=== PATIENT | male | born 1960 | race Caucasian/White ===

== ENCOUNTER 2023-04-26 09:21 | Emergency (ER) | payer SELFPAY ==
[2023-04-26 09:26] VITALS: BP 194/98; PULSE 83; RESP 16; TEMP 36.6; O2SAT 97; BMI 32.3
--- NOTE | 2023-04-26 09:54 | CRLHL7_ITS ---
For Patients: As a result of the Cures Act, medical imaging exams and procedure reports are released immediately into your electronic medical record. You may view this report before your referring provider. If you have questions, please contact your health care provider. INDICATION: Left facial swelling. TECHNIQUE: CT maxillofacial without contrast. COMPARISON: None. FINDINGS: Facial bones: Smita Bernal on knee. Would you by chance the available to in about 10 minutes? Orbits and globes: Unremarkable. Globes are intact. No sign of intraorbital hemorrhage or emphysema. Sinuses: Dense mucosal thickening in the left maxillary sinus. 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 Generalized superficial edema/inflammation in the left facial soft tissues. No deep tissue inflammation and no abscess. IMPRESSION: Left maxillary periodontal disease is likely resulting in inflammatory changes in the left maxillary sinus and acute superficial left facial edema/inflammation. No deep tissue inflammation and no drainable abscess. Please note that all CT scans at this facility use dose modulation, iterative reconstruction, and/or weight-based dosing when appropriate to reduce radiation dose to as low as reasonably achievable. Dictated by Humberto Joel MD @ 04/26/2023 10:56:03 AM (Electronically Signed)
--- NOTE | 2023-04-26 09:57 | ED.GENADULT ---
HPI - General Adult General Chief complaint: Unspecified Complaint, Adult Stated complaint: left eye drooping Time Seen by Provider: 04/26/23 09:47 History of Present Illness HPI narrative: Patient is a 63 year white male with history of hypertension and anxiety depression who presents with left facial swelling for a couple of days. He has noted that he has a warm red swollen face on the left in his left cheek and just below his eye. Does not appear to involve his eye. He has had no skin rashes or other bites or injury to the face. He does report that it feels a little hot to him, he has felt a little bit weak but he does not really feel chills or fevers and no rigors. He has not had similar infection in the past. He reports he is not diabetic. He is allergic only to penicillin. He has had no chest pain breathing problem fevers or chills. Related Data Home Medications Medication Instructions Recorded Confirmed metoprolol tartrate 100 mg tablet 100 mg PO BID 04/26/23 04/26/23 venlafaxine 150 mg 150 mg PO DAILY 04/26/23 04/26/23 capsule,extended release 24 hr Allergies Allergy/AdvReac Type Severity Reaction Status Date / Time Penicillins Allergy Verified 04/26/23 08:55 Review of Systems Status of ROS: Reports: 6 or more systems reviewed and unremarkable except as noted in History and below [facility] Social History Smoking Status: Never smoker How often do you have a drink containing alcohol: never How often do you have six or more drinks on one occasion: Never AUDIT-C Alcohol total score: 0 Non-prescribed substance use: denies use Exam Narrative: Exam Narrative: Objective: Vital signs show slightly elevated blood pressure afebrile HEENT shows a warm swollen left cheek and upper upper maxillary area. He has no mouth findings. He has got normal creases of his forehead he is able to smile and use his facial muscles, but it is a little less full of a smile on the left due to the swelling in his cheek. There is clearly moving there however he does not have a facial droop. His eye lid has been swollen as well. He has no lid lag, pupils react to light Pulses regular Neurologic is grossly nonfocal upper lower extremities. Const: Vital Signs, click to edit/add: Vital Signs - 24 hr 04/26/23 09:26 04/26/23 10:20 04/26/23 11:10 Temperature 97.8 F Pulse Rate [Left P ulse Oximeter] 83 79 73 Respiratory Rate 16 Blood Pressure [Ri ght Upper Arm] 194/98 H 201/108 H 193/95 H Pulse Oximetry 97 96 98 Oxygen Delivery Me thod Room Air Room Air Room Air 04/26/23 12:00 04/26/23 13:09 Temperature Pulse Rate [Left P ulse Oximeter] 66 Respiratory Rate Blood Pressure [Ri ght Upper Arm] 176/103 H 160/75 H Pulse Oximetry 99 Oxygen Delivery Me thod Room Air Course Vital Signs Vital signs: Initial Vital Signs Temperature 97.8 F 04/26/23 09:26 Temperature Source Temporal Artery Scan 04/26/23 09:26 Pulse Rate 83 04/26/23 09:26 Respiratory Rate 16 04/26/23 09:26 Blood Pressure 194/98 H 04/26/23 09:26 Blood Pressure Mean 130 H 04/26/23 09:26 Blood Pressure Position Sitting 04/26/23 09:26 Pulse Oximetry 97 04/26/23 09:26 Oxygen Delivery Method Room Air 04/26/23 09:26 Vital Signs Temperature 97.8 F 04/26/23 09:26 Pulse Rate 83 04/26/23 09:26 Respiratory Rate 16 04/26/23 09:26 Blood Pressure 194/98 H 04/26/23 09:26 Pulse Oximetry 97 04/26/23 09:26 Oxygen Delivery Method Room Air 04/26/23 09:26 Temperature 97.8 F 04/26/23 09:26 Pulse Rate 66 04/26/23 13:09 Respiratory Rate 16 04/26/23 09:26 Blood Pressure 160/75 H 04/26/23 13:09 Pulse Oximetry 99 04/26/23 13:09 Oxygen Delivery Method Room Air 04/26/23 13:09 Medical Decision Making MDM Narrative Medical decision making narrative: [age] year white male with history of hypertension with 3 day history of left facial swelling that is worsening. Warmth to the left maxillary area. Rule out abscess, rule out cellulitis. Patient likely has a facial cellulitis. Does not appear to involve his eyeball or periorbital area. I think would be twonsend to get a facial CT scan to rule out abscess in his cheek, would also give him IV vancomycin check labs including CRP and CBC. If he has no abscess and if he tolerates, he could return q.12 hours for vancomycin. He lives in [place]. Please see addendum dictation Addendum: Labs look reassuring, patient was given his blood pressure medicine that he missed this morning. He has left maxillary periodontal disease has inflammatory changes left maxillary sinus and acute superficial left facial edema inflammation no deep tissue inflammation no drainable abscess. At this point he appears clinically stable will give him a dose of ertapenem an additional dose of vancomycin today at night and tomorrow morning and then re-evaluation in the ER. Either for additional or to [place] or up patient antibiotics. Also recommended dental appointment for the patient since seems like there has periodontal disease. He does not have anything grossly draining or reddened in his mouth at this time. Would recommend a dental appointment tomorrow as mention. Lab Data Labs: Lab Results 04/26/23 Range/Units 10:00 WBC 11.98 H (4.50-11.00) K/uL RBC 5.25 (4.30-5.90) m/uL Hgb 15.6 (13.5-17.5) gm/dL Hct 46.3 (37.0-53.0) % MCV 88 (80-100) fL MCH 30 (26-34) pg MCHC 34 (32-36) gm/dL RDW Coeff of Myrna 13.3 (11.5-15.5) % Plt Count 229 (140-440) K/uL Neut % (Auto) 73.7 H (42.0-72.0) % Lymph % (Auto) 12.4 L (20-44) % Jewell % (Auto) 12.7 H (0.0-11.0) % Eos % (Auto) 0.8 (0.0-7.0) % Baso % (Auto) 0.3 (0.0-3.0) % Neut # (Auto) 8.80 H (1.7-7.0) K/uL Lymph # (Auto) 1.50 (0.90-2.90) K/uL Jewell # (Auto) 1.50 H (0.00-0.90) K/UL Eos # (Auto) 0.10 (0.00-0.50) K/uL Baso # (Auto) 0.00 (0.00-0.30) K/uL Sodium 137 (135-149) mmol/L Potassium 3.6 (3.6-5.1) mmol/L Chloride 104 (96-114) mmol/L Carbon Dioxide 27 (20-32) mmol/L BUN 15 (7-30) mg/dL Creatinine 1.0 (0.5-1.5) mg/dL Estimated Creat Clear 87.67 Estimated GFR 86 ml/min Glucose 117 H (60-115) mg/dL Calcium 9.1 (8.4-10.6) mg/dL C-Reactive Protein 5.1 H (0.5-1.0) mg/dL Discharge Plan Discharge Clinical Impression: Cellulitis of face Patient Disposition: Home, Self-Care Condition: Stable Additional Instructions: Return q.12 hours for 1 gram IV vancomycin x 2 doses, then re-evaluation in the ER tomorrow after dose. Warm pack to face every 2 hours, return sooner problem/concern. Dental appt recommended tomorrow as well Activity Level: Light activity Discharge Diet: Regular Prescriptions: No Action venlafaxine 150 mg capsule,extended release 24hr 150 mg PO DAILY metoprolol tartrate 100 mg tablet 100 mg PO BID Stand Alone Forms: [email or web address] Info Instructions
[2023-04-26 10:12] LABS: Basophils Percent Auto 0.3 % (0.0-3.0); Eosinophils Percent Auto 0.8 % (0.0-7.0); Hematocrit 46.3 % (37.0-53.0); Hemoglobin* 15.6 gm/dL (13.5-17.5); Immature Granulocytes Pct Auto 0.1 %; Lymphocytes Percent Auto 12.4 % (20-44); Mean Corpuscular HGB Conc 34 gm/dL (32-36); Mean Corpuscular Hemoglobin 30 pg (26-34); Mean Corpuscular Volume 88 fL (80-100); Monocytes Percent Auto 12.7 % (0.0-11.0); Neutrophils Percent Auto 73.7 % (42.0-72.0); Platelet Count* 229 K/uL (140-440); RDW Coefficient of Variation % 13.3 % (11.5-15.5); Red Blood Count 5.25 m/uL (4.30-5.90); White Blood Count* 11.98 K/uL (4.50-11.00)
[2023-04-26] MEDS: diphenhydrAMINE 50 MG/ML inj 25 MG IVP (10:13)
[2023-04-26] MEDS: 0.9 % SODIUM CHLORIDE 500 ML 500 ML IV (10:13)
[2023-04-26 10:20] VITALS: BP 201/108; PULSE 79; O2SAT 96
[2023-04-26 10:24] LABS: Chloride* 104 mmol/L (96-114); Potassium* 3.6 mmol/L (3.6-5.1); Sodium* 137 mmol/L (135-149)
--- NOTE | 2023-04-26 10:24 | ED.NURSE ---
Pt requested his sister Niki be updated. [employer] called Niki and provided her with an update.
[2023-04-26 10:27] LABS: Est. Creatinine Clearance* 87.67; Estimated Glomerular Filt Rate 86 ml/min
[2023-04-26 10:28] LABS: Blood Urea Nitrogen* 15 mg/dL (7-30); Calcium* 9.1 mg/dL (8.4-10.6); Carbon Dioxide* 27 mmol/L (20-32); Glucose* 117 mg/dL (60-115); Slide Review Reflex No
[2023-04-26 10:31] LABS: C Reactive Protein* 5.1 mg/dL (0.5-1.0)
[2023-04-26] MEDS: METOPROLOL TARTRATE 100 MG TABLET PO (10:31)
[2023-04-26 11:10] VITALS: BP 193/95; PULSE 73; O2SAT 98
[2023-04-26] MEDS: ERTAPENEM 1 GM in 0.9 % SODIUM CHLORIDE Mini-bag 100 ML IVPB (11:21)
[2023-04-26 12:00] VITALS: BP 176/103
[2023-04-26 13:09] VITALS: BP 160/75; PULSE 66; O2SAT 99
== END 2023-04-26 13:19 | disposition home or self-care (01) ==
PROVIDERS: Emergency Provider Family Medicine
DX: L03.211 Cellulitis of face (principal)
CPT/HCPCS: 36415; 70486; 80048; 80307; 85025; 86140; 96374; 99284; A9270; J1200; J1335; J3370; J7050; J7120

== ENCOUNTER 2023-04-27 12:05 | Emergency (ER) | payer SELFPAY ==
[2023-04-27 12:20] VITALS: BP 157/85; PULSE 69; RESP 16; TEMP 36.7; O2SAT 99; BMI 31.7
--- NOTE | 2023-04-27 12:48 | ED.GENADULT ---
HPI - General Adult General Chief complaint: Skin/Abscess/Foreign Body Stated complaint: Infusion/eval Time Seen by Provider: 04/27/23 12:41 History of Present Illness HPI narrative: Patient was here on Thursday. Saw Dr. Garcia - came in [facility] over the weekend and received Vancomycin. Here today to be re-evaluated . Patient was told he had a bad tooth. Has a dentist appointment today at 430. no order for IV antibiotics today. Patient states it feels better, but doesn't feel like the swelling has went down a lot 63-year-old man returning to the emergency department after receiving IV vancomycin over the last 2 days for dental infection. He was diagnosed with a facial cellulitis and without apparently drainable abscess. Initiated on Ertapenem and continued on vancomycin with recommendations for re-evaluation today. He does have a dental appointment later this afternoon. Overall improved. He has not had a fever. Swelling apparently has not improved yet. Related Data Home Medications Medication Instructions Recorded Confirmed metoprolol tartrate 100 mg tablet 100 mg PO BID 04/26/23 04/27/23 venlafaxine 150 mg 150 mg PO DAILY 04/26/23 04/27/23 capsule,extended release 24 hr Previous Rx's Medication Instructions Recorded clindamycin HCl 300 mg capsule 300 mg PO TID 7 days #21 caps 04/27/23 Allergies Allergy/AdvReac Type Severity Reaction Status Date / Time Penicillins Allergy Verified 04/27/23 12:24 Review of Systems Status of ROS: Reports: 6 or more systems reviewed and unremarkable except as noted in History and below [facility] Social History Smoking Status: Never smoker Do you use any of these nicotine containing products: None Second hand tobacco smoke exposure: No How often do you have a drink containing alcohol: never How often do you have six or more drinks on one occasion: Never AUDIT-C Alcohol total score: 0 Non-prescribed substance use: denies use service: Yes Exam Narrative: Exam Narrative: Pleasant. Calm. Skin is warm and dry. Marked but soft swelling of the left upper cheek in particular. Generally yovanny complexion but appears similar on both sides of his face. I do not appreciate much induration of the skin of the cheek at this time. Neck is supple without notable cervical lymphadenopathy. Breathing easily without stridor. Oropharynx looks a little hyperemic. There is a 1.5 cm swelling along the buccal surface of the mid upper maxillary dental area on the right. Tender to palpation here. Subtle erosion occurring against the buccal surface. No drainage visible at this time. It is fluctuant and quite tender. Opening closing eyes without difficulty. Const: Vital Signs, click to edit/add: Vital Signs - 24 hr 04/27/23 12:20 Temperature 98.1 F Pulse Rate [Pulse Oximeter] 69 Respiratory Rate 16 Blood Pressure [Ri ght Upper Arm] 157/85 H Pulse Oximetry 99 Oxygen Delivery Me thod Room Air Documenting provider has reviewed patient's vital signs: yes Course Vital Signs Vital signs: Initial Vital Signs Temperature 98.1 F 04/27/23 12:20 Temperature Source Temporal Artery Scan 04/27/23 12:20 Pulse Rate 69 04/27/23 12:20 Pulse Rhythm Regular 04/27/23 12:20 Pulse Strength 3+ Normal 04/27/23 12:20 Respiratory Rate 16 04/27/23 12:20 Blood Pressure 157/85 H 04/27/23 12:20 Blood Pressure Mean 109 H 04/27/23 12:20 Blood Pressure Position Sitting 04/27/23 12:20 Pulse Oximetry 99 04/27/23 12:20 Oxygen Delivery Method Room Air 04/27/23 12:20 Vital Signs Temperature 98.1 F 04/27/23 12:20 Pulse Rate 69 04/27/23 12:20 Respiratory Rate 16 04/27/23 12:20 Blood Pressure 157/85 H 04/27/23 12:20 Pulse Oximetry 99 04/27/23 12:20 Oxygen Delivery Method Room Air 04/27/23 12:20 Temperature 98.1 F 04/27/23 12:20 Pulse Rate 69 04/27/23 12:20 Respiratory Rate 16 04/27/23 12:20 Blood Pressure 157/85 H 04/27/23 12:20 Pulse Oximetry 99 04/27/23 12:20 Oxygen Delivery Method Room Air 04/27/23 12:20 Medical Decision Making MDM Narrative Medical decision making narrative: Still has line available. Think it would be prudent to go ahead and treat with 1 more dose of vancomycin. Ordered 1500 mg x 1. I would also like to drain this I think is an abscess. He is amenable to maxillary block. Maxillary block done with bupivacaine. Quite good wound anesthesia achieved. Did place some of in a buccal block as well. Than 18 gauge into this soft swelling manage to remove little over a mL of purulent material. Tolerated this quite well. Sent for wound culture. I think with close dental follow-up and drainage of this abscess, can discontinue vancomycin. Does not appear to have significant cellulitic change in the face at this point. Will transition to clindamycin. Wound culture pending. See patient discharge plan Medical Records Medical records reviewed: Yes I reviewed the patient's medical records Lab Data Lab results reviewed: Yes I reviewed the patient's lab results Discharge Plan Discharge Clinical Impression: Cellulitis of face, Abscess, dental Patient Disposition: Home, Self-Care Additional Instructions: Please go to your dental appointment yet this afternoon. Antibiotics in the form of clindamycin are being sent to your pharmacy. A wound culture is pending here if it turns out that you are having trouble getting over this or the antibiotics do not seem to be effective. Prescriptions: New clindamycin HCl 300 mg capsule 300 mg PO TID 7 Days Qty: 21 0RF No Action venlafaxine 150 mg capsule,extended release 24hr 150 mg PO DAILY metoprolol tartrate 100 mg tablet 100 mg PO BID Follow Up/Referrals: Provider,Not a Local [Primary Care Provider] - Stand Alone Forms: [employer] Info Instructions
--- NOTE | 2023-04-27 13:30 | ED.NURSE ---
iv site from op vanco is painful when flushed and is reddened. this was dc'd and a #20 n the lfa was placed.
[2023-04-27] MEDS: BUPIVACAINE 0.25% 30 ML INJECTION (15:50)
== END 2023-04-27 16:20 | disposition home or self-care (01) ==
PROVIDERS: Emergency Provider Family Medicine
DX: L03.211 Cellulitis of face (principal); K04.7 Periapical abscess without sinus
CPT/HCPCS: 41800; 87070; 96365; 99283; 99284; J3370; J3490; J7120